=== PATIENT | male | born 1980 | race Caucasian/White ===

== ENCOUNTER 2024-11-06 08:19 | Emergency (ER) | payer OTHER ==
[~2024-11-06] VITALS: Ht 175.3 cm; Wt 86.0 kg
[2024-11-06 09:36] LABS: BASOPHILS 0.7 % (0.2-1.2); EOSINOPHILS 2.3 % (0.8-7.0); HEMATOCRIT 46.8 % (40.1-51.0); HEMOGLOBIN 15.6 g/dL (13.7-17.5); LYMPHOCYTES 35.2 % (21.8-53.1); MCH 28.7 PG (25.7-32.2); MCHC 33.3 g/dL (32.3-36.5); MCV 86.2 fL (79.0-92.2); MONOCYTES 8.6 % (5.3-12.2); NEUTROPHILS 52.9 % (34.0-67.9); PLATELET COUNT 322 K/uL (163-337); RBC 5.43 M/uL (4.63-6.08)
[2024-11-06 09:54] LABS: ALBUMIN 3.9 g/dL (3.4-5.0); ALBUMIN/GLOBULIN RATIO 1.08 (1.1-2.4); ANION GAP 9.7 (7-21); BILIRUBIN, TOTAL 0.6 mg/dL (0.2-1.0); BUN/CREATININE RATIO 8.33 (6.0-28.6); CALCIUM 9.3 mg/dL (8.5-10.1); CREATININE, SERUM 1.2 mg/dL (0.70-1.30); POTASSIUM 4.7 mmol/L (3.5-5.1); PROTEIN, TOTAL 7.5 g/dL (6.4-8.2)
[2024-11-06 11:13] VITALS: BP 109/71
== END 2024-11-06 11:13 | disposition home or self-care (01) ==
LOC: ED 08:19
PROVIDERS: Emergency Medicine
DX: R10.11 Right upper quadrant pain (principal)
CPT/HCPCS: 36415; 74177; 76705; 80053; 83690; 85025; 99284-25; Q9967